=== PATIENT | male | born 1935 | race Caucasian/White ===

== ENCOUNTER 2018-09-30 13:15 | Inpatient (IN) | payer OTHER ==
[~2018-09-30] VITALS: Ht 193 cm; Wt 85.1 kg
[2018-09-30] MEDS ORDERED: DOCUSATE 100 MG CAPSULE PO PRN (13:30)
[2018-09-30] MEDS ORDERED: ACETAMINOPHEN 325 MG TABLET PO PRN (13:30)
[2018-09-30] MEDS ORDERED: BISACODYL 10 MG SUPP PR PRN (13:30)
[2018-09-30] MEDS ORDERED: PLEASE ENTER ALLERGIES MC SCH (17:00)
[2018-09-30] MEDS ORDERED: PLEASE ENTER HEIGHT AND WEIGHT MC SCH (17:00)
[2018-09-30] MEDS ORDERED: LORazepam 0.5MG TABLET PO PRN (18:00)
[2018-09-30] MEDS ORDERED: TEMAZEPAM 15 MG CAPSULE PO PRN (18:00)
[2018-09-30 18:06] VITALS: BP 148/74
[2018-09-30] MEDS ORDERED: PANTOPRAZOLE MC SCH (19:00)
[2018-09-30] MEDS ORDERED: [UNRECOGNIZED DRUG - OTHER] MC SCH (19:00)
[2018-09-30] MEDS: DONEPEZIL 10 MG TABLET PO SCH (19:49)
[2018-09-30] MEDS: MEMANTINE 10MG TABLET PO SCH (19:49)
[2018-09-30] MEDS: QUETIAPINE 25MG TABLET PO SCH (19:49)
[2018-09-30] MEDS: BUPROPION SR 150 MG TABLET PO SCH (19:49)
[2018-10-01] MEDS: OMEPRAZOLE 20 MG CAPSULE.DR PO SCH (05:57)
[2018-10-01] MEDS ORDERED: PANTOPROZOLE 40MG TABLET PO SCH (06:00)
[2018-10-01 06:08] LABS: BASOPHILS # (AUTO) 0.02 x10^3/uL (0-0.1); BASOPHILS % (AUTO) 0 % (0-1); EOSINOPHILS # (AUTO) 0.12 x10^3/uL (0-0.4); EOSINOPHILS % (AUTO) 2 % (1-7); LYMPHOCYTES # (AUTO) 0.73 x10^3/uL (1-3.4); LYMPHOCYTES % (AUTO) 11 % (22-44); MD NO; MEAN CORPUSCULAR HEMOGLOBIN 30.9 pg (27.5-34.5); MEAN CORPUSCULAR HGB CONC 32.4 g/dL (33.2-36.2); MEAN CORPUSCULAR VOLUME 95.4 fL (81-97); MEAN PLATELET VOLUME 6.9 fL (7.4-10.4); MONOCYTES # (AUTO) 0.53 x10^3/uL (0.2-0.8); MONOCYTES % (AUTO) 8 % (2-9); NEUTROPHILS # (AUTO) 5.48 x10^3/uL (1.8-6.8); NEUTROPHILS % (AUTO) 80 % (42-75); PLATELET COUNT 352 x10^3/uL (130-400); RED BLOOD COUNT 3.62 x10^6/uL (4.38-5.82); RED CELL DISTRIBUTION WIDTH 12.9 % (9.4-14.8)
[2018-10-01 06:20] LABS: ANION GAP 6 mmol/L (5-15); CALCIUM 8.2 mg/dL (8.5-10.1); CHLORIDE 104 mmol/L (98-107)
[2018-10-01 06:50] LABS: ALANINE AMINOTRANSFERASE 21 U/L (12-78); ALBUMIN 2.9 g/dL (3.4-5.0); ALKALINE PHOSPHATASE 86 U/L (45-117); BILIRUBIN,TOTAL 0.7 mg/dL (0.2-1.0); CHOL/HDL RATIO 3.9; CHOLESTEROL, TOTAL 175 mg/dL (140-239); HDL CHOL % 26 % (26-37); HDL CHOLESTEROL (DIRECT) 45 mg/dL (40-60); LDL CHOLESTEROL,CALCULATED 117 mg/dL (54-169); LDL/HDL RATIO 2.6 (0.5-3.0); TOTAL PROTEIN 6.2 g/dL (6.4-8.2); TRIGLYCERIDES 67 mg/dL (50-200); VLDL CHOLESTEROL 13 mg/dL (0-25)
[2018-10-01 06:53] LABS: FOLATE LEVEL > 20.0 ng/mL (3.1-17.5)
[2018-10-01 07:36] VITALS: BP 142/79
[2018-10-01] MEDS: CITALOPRAM 20 MG TABLET PO SCH (08:24)
[2018-10-01] MEDS: BUPROPION SR 150 MG TABLET PO SCH (08:24)
[2018-10-01] MEDS: DOXAZOSIN 2MG TABLET PO SCH (08:24)
[2018-10-01] MEDS: MULTIVITAMIN 1 TABLET PO SCH (08:25)
[2018-10-01] MEDS: MEMANTINE 10MG TABLET PO SCH ×2 (08:25→20:59)
[2018-10-01] MEDS: QUETIAPINE 25MG TABLET PO SCH ×2 (08:25→20:59)
[2018-10-01] MEDS: FINASTERIDE 5 MG TABLET PO SCH (08:32)
[2018-10-01] MEDS ORDERED: ACETAMINOPHEN 325 MG TABLET PO PRN (10:30)
[2018-10-01] MEDS ORDERED: DOCUSATE 100 MG CAPSULE PO PRN (10:30)
[2018-10-01] MEDS ORDERED: POTASSIUM CHLORIDE 20 MEQ TAB.ER.PRT PO ONE (11:00)
[2018-10-01 19:45] VITALS: BP 120/75
[2018-10-01] MEDS: DONEPEZIL 10 MG TABLET PO SCH (20:59)
[2018-10-02] MEDS: OMEPRAZOLE 20 MG CAPSULE.DR PO SCH (05:23)
[2018-10-02 07:38] VITALS: BP 137/74
[2018-10-02 08:43] LABS: ANION GAP 5 mmol/L (5-15); CALCIUM 8.7 mg/dL (8.5-10.1); CHLORIDE 106 mmol/L (98-107); CREATININE 0.67 mg/dL (0.7-1.3)
[2018-10-02] MEDS: MULTIVITAMIN 1 TABLET PO SCH (08:54)
[2018-10-02] MEDS: MEMANTINE 10MG TABLET PO SCH ×2 (08:54→20:03)
[2018-10-02] MEDS: DOXAZOSIN 2MG TABLET PO SCH (08:55)
[2018-10-02] MEDS: QUETIAPINE 25MG TABLET PO SCH ×2 (08:55→20:04)
[2018-10-02] MEDS: CITALOPRAM 20 MG TABLET PO SCH (08:55)
[2018-10-02] MEDS: SENNA/DOCUSATE TABLET PO SCH (08:55)
[2018-10-02] MEDS: FINASTERIDE 5 MG TABLET PO SCH (09:40)
[2018-10-02 12:42] LABS: MICROSCOPIC INDICATED
--- NOTE | 2018-10-02 13:27 | NUR ---
Chopped diet with thin liquids. Patient was educated on swallow strategies and precautions and were written on an orange sheet and placed in patient's room on the whiteboard. Addendum: 10/02/18 at 1335 by ARMIN GREEN Amended: Links added.
[2018-10-02] MEDS: DIVALPROEX 125 MG CAP.SPRINK PO SCH (16:35)
[2018-10-02 19:26] VITALS: BP 113/65
[2018-10-02] MEDS: DONEPEZIL 10 MG TABLET PO SCH (20:04)
[2018-10-03 08:00] VITALS: BP 122/61
[2018-10-03] MEDS: DOXAZOSIN 2MG TABLET PO SCH (09:49)
[2018-10-03] MEDS: OMEPRAZOLE 20 MG CAPSULE.DR PO SCH (09:49)
[2018-10-03] MEDS: MULTIVITAMIN 1 TABLET PO SCH (09:50)
[2018-10-03] MEDS: CITALOPRAM 20 MG TABLET PO SCH (09:50)
[2018-10-03] MEDS: SENNA/DOCUSATE TABLET PO SCH (09:50)
[2018-10-03] MEDS: QUETIAPINE 25MG TABLET PO SCH ×2 (09:50→19:30)
[2018-10-03] MEDS: MEMANTINE 10MG TABLET PO SCH ×2 (09:50→19:30)
[2018-10-03] MEDS: FINASTERIDE 5 MG TABLET PO SCH (10:48)
[2018-10-03] MEDS ORDERED: QUETIAPINE 25MG TABLET PO PRN (17:30)
[2018-10-03] MEDS: DIVALPROEX 125 MG CAP.SPRINK PO SCH (17:37)
[2018-10-03 19:30] VITALS: BP 121/73
[2018-10-03] MEDS: DONEPEZIL 10 MG TABLET PO SCH (19:30)
[2018-10-03] MEDS: TEMAZEPAM 15 MG CAPSULE PO PRN (19:30)
[2018-10-04 07:14] VITALS: BP 147/79
[2018-10-04 08:04] VITALS: BP 69/45
[2018-10-04 08:06] VITALS: BP 120/73
[2018-10-04 08:10] VITALS: BP 112/83
[2018-10-04] MEDS: MEMANTINE 10MG TABLET PO SCH ×2 (08:45→19:53)
[2018-10-04] MEDS: CITALOPRAM 20 MG TABLET PO SCH (08:45)
[2018-10-04] MEDS: OMEPRAZOLE 20 MG CAPSULE.DR PO SCH (08:46)
[2018-10-04] MEDS: MULTIVITAMIN 1 TABLET PO SCH (08:46)
[2018-10-04] MEDS: FINASTERIDE 5 MG TABLET PO SCH (08:46)
[2018-10-04] MEDS: SENNA/DOCUSATE TABLET PO SCH (08:46)
[2018-10-04] MEDS: DOXAZOSIN 2MG TABLET PO SCH (08:46)
--- NOTE | 2018-10-04 10:45 | NUR ---
Pureed diet with thin liquids. Mcneal sheet with swallow precautions and strategies was placed on patient's white board. Addendum: 10/04/18 at 1046 by ARMIN GREEN Amended: Links added.
[2018-10-04] MEDS: DIVALPROEX 125 MG CAP.SPRINK PO SCH (16:36)
[2018-10-04 19:50] VITALS: BP 136/85
[2018-10-04] MEDS: QUETIAPINE 25MG TABLET PO SCH (19:53)
[2018-10-04] MEDS: DONEPEZIL 10 MG TABLET PO SCH (19:53)
[2018-10-04] MEDS: TEMAZEPAM 15 MG CAPSULE PO PRN (19:53)
[2018-10-05 07:26] VITALS: BP 141/76
[2018-10-05] MEDS: CITALOPRAM 20 MG TABLET PO SCH (08:53)
[2018-10-05] MEDS: SENNA/DOCUSATE TABLET PO SCH (08:53)
[2018-10-05] MEDS: FINASTERIDE 5 MG TABLET PO SCH (08:53)
[2018-10-05] MEDS: OMEPRAZOLE 20 MG CAPSULE.DR PO SCH (08:53)
[2018-10-05] MEDS: MULTIVITAMIN 1 TABLET PO SCH (08:53)
[2018-10-05] MEDS: DOXAZOSIN 2MG TABLET PO SCH (08:54)
[2018-10-05] MEDS: MEMANTINE 10MG TABLET PO SCH ×2 (08:54→19:59)
[2018-10-05] MEDS: DIVALPROEX 125 MG CAP.SPRINK PO SCH (17:24)
[2018-10-05 17:28] VITALS: BP 120/71
[2018-10-05 19:12] VITALS: BP 102/65
[2018-10-05] MEDS: DONEPEZIL 10 MG TABLET PO SCH (20:00)
[2018-10-05] MEDS: QUETIAPINE 25MG TABLET PO SCH (20:00)
[2018-10-06] MEDS: OMEPRAZOLE 20 MG CAPSULE.DR PO SCH (05:09)
[2018-10-06 08:13] VITALS: BP 139/71
[2018-10-06] MEDS: FINASTERIDE 5 MG TABLET PO SCH ×2 (08:31→08:32)
[2018-10-06] MEDS: CITALOPRAM 20 MG TABLET PO SCH ×2 (08:31→08:32)
[2018-10-06] MEDS: SENNA/DOCUSATE TABLET PO SCH ×2 (08:31→08:32)
[2018-10-06] MEDS: MEMANTINE 10MG TABLET PO SCH ×2 (08:32→20:12)
[2018-10-06] MEDS: MULTIVITAMIN 1 TABLET PO SCH (08:32)
[2018-10-06] MEDS: DOXAZOSIN 2MG TABLET PO SCH (08:32)
[2018-10-06] MEDS: QUETIAPINE 25MG TABLET PO PRN (11:41)
[2018-10-06] MEDS: DIVALPROEX 125 MG CAP.SPRINK PO SCH (17:45)
[2018-10-06 19:27] VITALS: BP 112/76
[2018-10-06] MEDS: DONEPEZIL 10 MG TABLET PO SCH (20:12)
[2018-10-06] MEDS: QUETIAPINE 25MG TABLET PO SCH (20:12)
[2018-10-06] MEDS: TEMAZEPAM 15 MG CAPSULE PO PRN (20:13)
[2018-10-07] MEDS: OMEPRAZOLE 20 MG CAPSULE.DR PO SCH (05:47)
[2018-10-07 07:14] VITALS: BP 157/79
[2018-10-07] MEDS: SENNA/DOCUSATE TABLET PO SCH (08:18)
[2018-10-07] MEDS: MULTIVITAMIN 1 TABLET PO SCH (08:18)
[2018-10-07] MEDS: MEMANTINE 10MG TABLET PO SCH ×2 (08:19→20:04)
[2018-10-07] MEDS: DOXAZOSIN 2MG TABLET PO SCH (08:19)
[2018-10-07] MEDS: FINASTERIDE 5 MG TABLET PO SCH (08:19)
[2018-10-07] MEDS: CITALOPRAM 20 MG TABLET PO SCH (08:19)
[2018-10-07] MEDS: DIVALPROEX 125 MG CAP.SPRINK PO SCH (17:27)
[2018-10-07] MEDS: QUETIAPINE 25MG TABLET PO SCH (20:04)
[2018-10-07] MEDS: DONEPEZIL 10 MG TABLET PO SCH (20:04)
[2018-10-07] MEDS: TEMAZEPAM 15 MG CAPSULE PO PRN (20:04)
[2018-10-08] MEDS: OMEPRAZOLE 20 MG CAPSULE.DR PO SCH (05:53)
[2018-10-08 07:20] VITALS: BP_SYST 148; BP_SYST 158; BP_DIAS 74
[2018-10-08] MEDS: DOXAZOSIN 2MG TABLET PO SCH (09:54)
[2018-10-08] MEDS: MEMANTINE 10MG TABLET PO SCH ×2 (09:55→19:50)
[2018-10-08] MEDS: SENNA/DOCUSATE TABLET PO SCH (09:55)
[2018-10-08] MEDS: MULTIVITAMIN 1 TABLET PO SCH (09:55)
[2018-10-08] MEDS: CITALOPRAM 20 MG TABLET PO SCH (09:55)
[2018-10-08] MEDS: FINASTERIDE 5 MG TABLET PO SCH (09:55)
[2018-10-08] MEDS: DIVALPROEX 125 MG CAP.SPRINK PO SCH (17:07)
[2018-10-08 19:30] VITALS: BP 123/76
[2018-10-08] MEDS: DONEPEZIL 10 MG TABLET PO SCH (19:50)
[2018-10-08] MEDS: TEMAZEPAM 15 MG CAPSULE PO PRN (19:51)
[2018-10-08] MEDS: QUETIAPINE 25MG TABLET PO SCH (19:51)
[2018-10-09] MEDS: OMEPRAZOLE 20 MG CAPSULE.DR PO SCH (05:53)
[2018-10-09 07:10] VITALS: BP 158/78
[2018-10-09] MEDS: DOXAZOSIN 2MG TABLET PO SCH (09:21)
[2018-10-09] MEDS: FINASTERIDE 5 MG TABLET PO SCH (09:22)
[2018-10-09] MEDS: SENNA/DOCUSATE TABLET PO SCH (09:22)
[2018-10-09] MEDS: MULTIVITAMIN 1 TABLET PO SCH (09:22)
[2018-10-09] MEDS: CITALOPRAM 20 MG TABLET PO SCH (09:22)
[2018-10-09] MEDS: MEMANTINE 10MG TABLET PO SCH ×2 (09:22→19:41)
[2018-10-09] MEDS: DIVALPROEX 125 MG CAP.SPRINK PO SCH (17:24)
[2018-10-09 19:28] VITALS: BP 137/78
[2018-10-09] MEDS: TEMAZEPAM 15 MG CAPSULE PO PRN (19:41)
[2018-10-09] MEDS: DONEPEZIL 10 MG TABLET PO SCH (19:41)
[2018-10-09] MEDS: QUETIAPINE 25MG TABLET PO SCH (19:42)
[2018-10-10] MEDS: OMEPRAZOLE 20 MG CAPSULE.DR PO SCH (05:28)
[2018-10-10 07:15] VITALS: BP 114/70
[2018-10-10] MEDS: MEMANTINE 10MG TABLET PO SCH ×2 (10:00→19:43)
[2018-10-10] MEDS: FINASTERIDE 5 MG TABLET PO SCH (10:00)
[2018-10-10] MEDS: SENNA/DOCUSATE TABLET PO SCH (10:00)
[2018-10-10] MEDS: POLYETHYLENE GLYCOL 17 GM PACKET PO PRN (10:01)
[2018-10-10] MEDS: MULTIVITAMIN 1 TABLET PO SCH (10:01)
[2018-10-10] MEDS: DOXAZOSIN 2MG TABLET PO SCH (10:01)
[2018-10-10] MEDS: CITALOPRAM 20 MG TABLET PO SCH (10:03)
[2018-10-10] MEDS: QUETIAPINE 25MG TABLET PO PRN (13:37)
[2018-10-10] MEDS: DIVALPROEX 125 MG CAP.SPRINK PO SCH (16:52)
[2018-10-10] MEDS ORDERED: FINA5TAB4 PO (16:59)
[2018-10-10] MEDS ORDERED: DOXA2TAB9 PO (16:59)
[2018-10-10] MEDS ORDERED: MULT1TAB60 PO (16:59)
[2018-10-10] MEDS ORDERED: QUET25TA7 PO ×2 (16:59)
[2018-10-10] MEDS ORDERED: DIVA125C2 PO (16:59)
[2018-10-10] MEDS ORDERED: MEMA10TA20 PO (16:59)
[2018-10-10] MEDS ORDERED: TEMA15CA6 PO (16:59)
[2018-10-10] MEDS ORDERED: DONE10TA56 PO (16:59)
[2018-10-10] MEDS ORDERED: CITA20TA9 PO (16:59)
[2018-10-10] MEDS ORDERED: OMEP-110 PO (16:59)
[2018-10-10] MEDS: TEMAZEPAM 15 MG CAPSULE PO PRN (19:43)
[2018-10-10] MEDS: QUETIAPINE 25MG TABLET PO SCH (19:43)
[2018-10-10] MEDS: DONEPEZIL 10 MG TABLET PO SCH (19:43)
[2018-10-10 20:02] VITALS: BP 137/78
[2018-10-11] MEDS: OMEPRAZOLE 20 MG CAPSULE.DR PO SCH (06:01)
[2018-10-11 07:45] VITALS: BP 80/60
[2018-10-11 08:00] VITALS: BP 130/80
[2018-10-11] MEDS: SENNA/DOCUSATE TABLET PO SCH (08:21)
[2018-10-11] MEDS: DOXAZOSIN 2MG TABLET PO SCH (08:21)
[2018-10-11] MEDS: MEMANTINE 10MG TABLET PO SCH (08:21)
[2018-10-11] MEDS: CITALOPRAM 20 MG TABLET PO SCH (08:21)
[2018-10-11] MEDS: POLYETHYLENE GLYCOL 17 GM PACKET PO PRN (08:21)
[2018-10-11] MEDS: FINASTERIDE 5 MG TABLET PO SCH (08:21)
[2018-10-11] MEDS: MULTIVITAMIN 1 TABLET PO SCH (08:21)
[2018-10-11] MEDS: QUETIAPINE 25MG TABLET PO PRN (10:20)
== END 2018-10-11 11:10 | disposition home or self-care (01) | DRG 57 ==
LOC: 3E 16:36
PROVIDERS: ADMIT Psychiatry & Neurology Psychosomatic Medicine; ATTEND Psychiatry & Neurology Psychosomatic Medicine
PROC: 0T9B70Z Drainage of Bladder with Drainage Device, Via Natural or Artificial Opening (ICD-10-PCS; principal; 2018-10-02)
DX: G30.9 Alzheimer's disease, unspecified (principal); E44.0 Moderate protein-calorie malnutrition; F02.81 Dementia in other diseases classified elsewhere, unspecified severity, with behavioral disturbance; F32.9 Major depressive disorder, single episode, unspecified; E87.6 Hypokalemia; G47.00 Insomnia, unspecified; G89.29 Other chronic pain; I10 Essential (primary) hypertension; K21.9 Gastro-esophageal reflux disease without esophagitis; N40.0 Benign prostatic hyperplasia without lower urinary tract symptoms; Z66 Do not resuscitate; Z79.899 Other long term (current) drug therapy; Z82.49 Family history of ischemic heart disease and other diseases of the circulatory system; Z68.22 Body mass index [BMI] 22.0-22.9, adult
CPT/HCPCS: 36415; 80048; 80053; 80061; 81001; 82140; 82607; 82746; 83735; 84439; 84443; 85025; 86480; 87077; 87086; 87186; 93005; 93306; 92523-GN

== ENCOUNTER 2018-10-13 17:22 | Emergency (ER) | payer OTHER ==
[~2018-10-13] VITALS: Ht 193 cm; Wt 68.0 kg
[~2018-10-13 17:22] MED LIST: CITA20TA9 PO; DIVA125C2 PO; DONE10TA56 PO; DOXA2TAB9 PO; FINA5TAB4 PO; MEMA10TA20 PO; MULT1TAB60 PO; OMEP-110 PO; QUET25TA7 PO; TEMA15CA6 PO
[2018-10-13 17:28] VITALS: BP 133/79
[2018-10-13] MEDS ORDERED: LIDOCAINE 1%-EPI 1:100K, 20ML SQ ONE (17:30)
== END 2018-10-13 19:20 | disposition home or self-care (01) ==
LOC: ED 19:14
DX: S01.01XA Laceration without foreign body of scalp, initial encounter (principal); F03.90 Unspecified dementia, unspecified severity, without behavioral disturbance, psychotic disturbance, mood disturbance, and anxiety; W19.XXXA Unspecified fall, initial encounter; Y93.89 Activity, other specified; Y92.009 Unspecified place in unspecified non-institutional (private) residence as the place of occurrence of the external cause; Y99.8 Other external cause status
CPT/HCPCS: 12031; 70450; 99284